=== PATIENT | female | born 1935 | race Caucasian/White ===

== ENCOUNTER 2016-11-04 18:04 | Inpatient (IN) | payer OTHER ==
[~2016-11-04] VITALS: Ht 154.9 cm; Wt 57.2 kg
[~2016-11-04 18:04] MED LIST: ACIPHEX20 MG PO; AVAPRO300 MG PO; Ativan PO; BENICAR HCT1 TABLET PO; CARDIZEM CD180 MG PO; Cardizem CD,Cartia X PO; Coreg PO; Keflex PO; LASIX40 MG PO; POTASSIUM CHLO10 ME3 PO; RYZOLT100 MG PO; SIMVASTATIN40 MG PO; TIGAN100 MG/ML IM; TRAMADOL HCL50 MG PO; Zocor PO
[2016-11-04 19:30] LABS: HEMATOCRIT 28.6 % (36.0-46.0); MCH 15.3 PG (29.0-34.0); MCHC 26.2 G/DL (30.0-36.0); MCV 58.5 FL (83-99); MEAN PLAT.VOLUME 9.2 uM^3 (9.5-12.4); NRBC (%) 0.2 /100 WBC (0-0); PLATELET COUNT 578 K/uL (156-360); RBC DIS.WIDTH-CV 20.6 % (11.8-14.6); RBC DIS.WIDTH-SD 40.9 % (39-53); RED BLOOD COUNT 4.89 M/uL (3.80-5.20); WHITE BLOOD COUNT 8.1 K/uL (4.1-10.2)
[2016-11-04 19:54] LABS: CHLORIDE 105 mEq/L (99-109); POTASSIUM 3.7 mEq/L (3.7-5.4); SODIUM 140 mEq/L (136-147)
[2016-11-04 19:59] LABS: ANION GAP 11 MEQ/L (2-14); GFR ESTIMATE (CALCULATED) 50 mL/min/; GLUCOSE 133 mg/dL (70-99)
[2016-11-04 20:00] LABS: UREA NITROGEN (BUN) 23 mg/dL (9-23)
[2016-11-04 20:06] LABS: PROTHROMBIN TIME 10.8 SEC (10.2-12.9)
[2016-11-04 20:08] LABS: FERRITIN 2 NG/ML (10-291); PTT 27.9 SEC (25-37)
[2016-11-04 20:13] LABS: ALKALINE PHOSPHATASE 105 IU/L (3-129); SAMPLE HEMOLYSIS CHECK 0; SAMPLE ICTERIC CHECK 0; SAMPLE LIPEMIA CHECK 0; TOTAL BILIRUBIN 0.3 MG/DL (0.0-1.0)
[2016-11-04] MEDS ORDERED: COREG3.125 M1 PO (20:24)
[2016-11-04] MEDS ORDERED: ATIVAN1 MG PO (20:26)
[2016-11-04 20:31] VITALS: BP 148/83
[2016-11-04 20:59] VITALS: BP 143/67
[2016-11-04 21:41] VITALS: BP 147/66
[2016-11-04 21:59] VITALS: BP 147/66
[2016-11-04 22:59] VITALS: BP 135/88
[2016-11-04 23:37] VITALS: BP 170/76
[2016-11-05] VITALS (9 sets, daily range): BP systolic 91–149; BP diastolic 56–75
[2016-11-05 07:16] LABS: HEMATOCRIT 33.5 % (36.0-46.0); MCV 65.9 FL (83-99)
[2016-11-05 07:29] LABS: ANION GAP 10 MEQ/L (2-14); CHLORIDE 103 MEQ/L (99-109); GFR ESTIMATE (CALCULATED) > 59 mL/min/; POTASSIUM 4.1 MEQ/L (3.7-5.4); SAMPLE HEMOLYSIS CHECK 0; SAMPLE ICTERIC CHECK 0; SAMPLE LIPEMIA CHECK 0; SODIUM 141 MEQ/L (136-147); UREA NITROGEN (BUN) 19 mg/dL (9-23)
[2016-11-05 07:34] LABS: GLUCOSE 93 mg/dL (70-99)
[2016-11-05 10:52] LABS: IRON 21 MCG/DL (35-150)
[2016-11-05 20:08] LABS: HEMATOCRIT 34.2 % (36.0-46.0)
[2016-11-06 03:22] VITALS: BP 120/58
[2016-11-06 06:55] LABS: HEMATOCRIT 33.3 % (36.0-46.0); MCHC 29.4 G/DL (30.0-36.0); MCV 66.3 FL (83-99); NRBC (%) 0.2 /100 WBC (0-0); PLATELET COUNT 470 K/uL (156-360); RBC DIS.WIDTH-CV 28.3 % (11.8-14.6); RBC DIS.WIDTH-SD 63.6 % (39-53); RED BLOOD COUNT 5.02 M/uL (3.80-5.20); WHITE BLOOD COUNT 8.1 K/uL (4.1-10.2)
[2016-11-06 06:57] LABS: MCH 19.5 PG (29.0-34.0)
[2016-11-06 08:00] VITALS: BP 125/67
[2016-11-06] MEDS ORDERED: FEROSUL325 MG PO (10:15)
[2016-11-06] MEDS ORDERED: CYANOCOBALAM1000 MCG PO (10:15)
== END 2016-11-06 12:28 | disposition home or self-care (01) | DRG 812 ==
LOC: EME 18:04 → EDOF 19:45 → 5WEST 19:45 → EDOF 19:45 → ENRESERV 19:46 → 5WEST 21:12 → CANRESERV 11-05 13:15 → ENRESERV 11-05 13:15 → 5WEST 11-06 12:28
PROVIDERS: Emergency Medicine; Hospitalist; Physician Assistant Medical
PROC: 30233N1 Transfusion of Nonautologous Red Blood Cells into Peripheral Vein, Percutaneous Approach (ICD-10-PCS; principal; 2016-11-04)
PROC: 0DJ08ZZ Inspection of Upper Intestinal Tract, Via Natural or Artificial Opening Endoscopic (ICD-10-PCS; 2016-11-05)
DX: D50.9 Iron deficiency anemia, unspecified (principal); D51.9 Vitamin B12 deficiency anemia, unspecified; I10 Essential (primary) hypertension; E78.5 Hyperlipidemia, unspecified; K21.9 Gastro-esophageal reflux disease without esophagitis; F41.9 Anxiety disorder, unspecified; F32.9 Major depressive disorder, single episode, unspecified; Z87.891 Personal history of nicotine dependence; K59.00 Constipation, unspecified; K62.5 Hemorrhage of anus and rectum; Z90.49 Acquired absence of other specified parts of digestive tract; K44.9 Diaphragmatic hernia without obstruction or gangrene
CPT/HCPCS: 74176; 80048; 80053; 82607; 82728; 82746; 83540; 84466; 85014; 85018; 85027; 85610; 85730; 86850; 86900; 86901; 86920; 99281; 99285; G0378; J1756; J1940; J3420; J7050; P9016; S0028